=== PATIENT | female | born 1965 | race Caucasian/White ===

== ENCOUNTER 2020-03-20 09:23 | Emergency (ER) | payer BC ==
[~2020-03-20 09:23] MED LIST: DOCUSATE SODIU1 EACH PO; ECOTRIN81 MG PO; IMDUR ER TAB 3030 MG PO; NORCO 7.5-3251 EACH PO; TENORMIN 25 MG25 MG PO
[2020-03-20 10:50] LABS: HEMOGLOBIN 15.5 gm/dl (12.3-15.3); RED BLOOD COUNT 4.7 M/UL (4.00-5.10); WHITE BLOOD COUNT 10.8 K/UL (4.5-11.0)
[2020-03-20 11:33] LABS: BUN/CREATININE RATIO 23 (0-10)
[2020-03-20] MEDS ORDERED: LOPRESSOR 25 MG25 MG PO (12:34)
[2020-03-20] MEDS ORDERED: LO-DOSE ASPIRIN81 MG PO (12:34)
[2020-03-20] MEDS ORDERED: ZITHROMAX250 MG PO (12:34)
[2020-03-20] MEDS ORDERED: OMNICEF 300 MG300 MG PO (12:34)
[2020-03-20] MEDS ORDERED: VIBRAMYCIN100 MG PO (12:41)
== END 2020-03-20 12:55 | disposition home or self-care (01) ==
LOC: ER1 09:23
PROVIDERS: Physician Assistant
DX: J18.9 Pneumonia, unspecified organism (principal); I48.91 Unspecified atrial fibrillation; Z20.822 Contact with and (suspected) exposure to COVID-19
CPT/HCPCS: 0240U; 71045; 80053; 81001; 82550; 82553; 83605; 83874; 84484; 85025; 87040; 93005; 99284; J7030

== ENCOUNTER → 2020-03-22 | Outpatient (CLI) | payer BC ==
[~2020-03-22] MED LIST changes: +LO-DOSE ASPIRIN81 MG PO; +LOPRESSOR 25 MG25 MG PO; +OMNICEF 300 MG300 MG PO; +VIBRAMYCIN100 MG PO; +ZITHROMAX250 MG PO
== END ==
LOC: KOH-I 16:29
DX: R50.9 Fever, unspecified (principal); J18.0 Bronchopneumonia, unspecified organism; Z87.891 Personal history of nicotine dependence
CPT/HCPCS: 71046